=== PATIENT | male | born 1980 | race Caucasian/White ===

== ENCOUNTER 2020-09-03 08:34 | Emergency (ER) | payer OTHER, SELFPAY ==
[2020-09-03 08:39] VITALS: BP 122/72; PULSE 79; RESP 16; TEMP 36.9; O2SAT 98
--- NOTE | 2020-09-03 08:43 | ED.GENADUL_ITS ---
Discharge Plan Disposition Patient Disposition: HOME Condition: Stable Discharge Details Clinical Impression: Lumbar strain, Radiculopathy Primary Care Provider: None,None ED Provider: Rula Nicole Home Meds and New Rx's Prescriptions: New methocarbamol 500 mg tablet 500 mg PO Q6H PRN (Reason: muscle spasm) Qty: 14 RF: 0 Discharge Instructions Instructions: Low Back Strain (ED) Additional Instructions: Alternate ice and heat to the affected area(s) several times daily for 20 minutes at a time. Alternate tylenol and motrin as needed and directed for pain. Take the methocarbamol for pain not relieved with Tylenol or Motrin. You will receive a call from care management regarding a follow-up appoint with the primary care doctor to establish care and for reevaluation. Return immediately to the emergency department if you develop any worsening or new concerning symptoms. Stand Alone Forms: Work Release Discharge Data Discharge Date/Time-TO BE ENTERED AT DEPARTURE: 09/03/20 09:11 Discharge Physician: Rula Nicole Medical Decision Making 40-year-old male presents with mid and left lower back pain with radiation down to his right mid posterior thigh for the past 4 days after increasing lifting and carrying and sleeping in a different position in his bed at night. No cauda equina symptoms. He is hemodynamically stable and appears nontoxic. He has no midline or paraspinal tenderness. No focal deficits. Neurovascular intact. Suspect most likely muscle strain. Also discussed the possibility of pinched nerve or disc herniation as he has right leg radiculopathy. Do not see an indication for imaging at this time as he has no focal deficits the patient is agreeable. He is declining any medication here. He states he feels that he can return to work tonight but is open to returning tomorrow night if his pain persists this evening. He is advised alternate ice and heat, Tylenol Motrin. We will send home with methocarbamol to take as directed. Patient placed on care management list to arrange for follow-up appointment with the primary care doctor. Usual and customary return precautions given prior to discharge. Medical Records Medical records reviewed: Yes I reviewed the patient's medical records. HPI General Mode of arrival: ambulatory . Date/Time Provider Initiated Documentation: 09/03/20 08:35 . Limitations to Documentation: no limitations . Information obtained by: patient . HPI Narrative: Patient is a 40-year-old male who presents with lower mid and left back pain with radiation down his right mid thigh for the past 4 days. Patient states his girlfriend recently had surgery and he has been doing more lifting and carrying at home in addition to lifting his toddler and has been sleeping on a different part of the bed to accommodate his girlfriend. He states the pain is worse with movement and bending. She has been taking ibuprofen and Tylenol with some relief. He has not taken any medication at this morning. He denies any fever, vomiting, abdominal pain, bowel or bladder incontinence, saddle anesthesia, leg weakness or numbness. 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 Patient drove himself to the ER. Related Data Home Medications Medication Instructions Recorded Confirmed methocarbamol 500 mg PO Q6H PRN #14 tab 09/03/20 Previous Rx's Medication Instructions Recorded methocarbamol 500 mg PO Q6H PRN #14 tab 09/03/20 Allergies Allergy/AdvReac Type Severity Reaction Status Date / Time No Known Allergies Allergy Unverified 09/03/20 08:44 Review of Systems All systems reviewed & are unremarkable except as noted in HPI and below Constitutional Constitutional: Reports as per HPI, Denies chills and Denies fever(s) Eyes Eyes: Denies blurry vision ENT Ears, Nose, Mouth, and Throat: Denies dizziness, Denies sore throat and Denies throat swelling Cardiovascular Cardiovascular: Denies chest pain and Denies dyspnea Respiratory Respiratory: Denies cough and Denies dyspnea Gastrointestinal Gastrointestinal: Denies abdominal pain, Denies diarrhea and Denies vomiting Genitourinary Genitourinary: Denies hematuria and Denies dysuria Musculoskeletal Musculoskeletal: Reports back pain and Denies numbness Integumentary/Breasts Skin/Breast: Denies lesions and Denies rash Neurologic Neurologic: Denies dizziness, Denies localized weakness and Denies numbness Allergic/Immunologic Allergic/Immunologic: Denies throat swelling [facility] Medical History (Updated 09/03/20 @ 09:10 by Rula Nicole DO) No significant past medical history Surgical History (Updated 09/03/20 @ 09:10 by Rula Nicole DO) No significant past surgical history Social History Smoking/Tobacco Use Status: Current every day Tobacco Type: cigarettes Smoking risk assessment performed?: Yes Alcohol Intake: never Drug use: Never Substance use type: does not use Do you feel safe at home: Yes Do you feel safe in your relationship?: Yes Exam Const General: cooperative, healthy appearing and no acute distress [facility] Head: normal to inspection Face and sinus: normal facial exam Eyes General: appearance normal, both eyes and all related structures EOM: EOM intact bilaterally Neck Neck: normal visual inspection and No submandibular swelling Lymphatic: no lymphadenopathy noted Chest Chest: normal inspection of the chest and no tenderness Resp Effort & Inspection: normal respiratory effort and able to speak in complete sentences Auscultation: clear to auscultation bilaterally Cardio Rate: regular rate Rhythm: regular rhythm GI Inspection: normal to inspection Palpation: soft, not firm, not rigid and nontender Auscultation: normal bowel sounds Back/Spine/Pelvis Thoracic/Lumbar Spine: thoracic and lumbar spine normal to inspection Pelvis: no pain with anterior-posterior compression Skin General skin exam: no rashes or lesions noted Neuro General: patient alert, patient awake and patient oriented x3 Cognition: normal cognition Speech: speech normal Motor: muscle tone normal throughout and strength 5/5 throughout Sensory Exam: no sensory deficits noted DTR's: Rt Patellar: 1+, Lt Patellar: 1+, Rt Ankle: 1+ and Lt Ankle: 1+ Plantar Reflexes: Equivocal: bilateral (negative babinski b/l ) Extrem General: normal to inspection, full ROM, capillary refill normal, no calf tenderness bilaterally and no edema Other: Bilateral DP/PT pulses intact. Psych Appearance: grossly normal Mental Status: mental status grossly normal Speech and Movement: speech and movement normal Affect: normal affect
== END 2020-09-03 09:11 | disposition home or self-care (01) ==
PROVIDERS: Emergency Provider Physician Assistant
DX: M54.16 Radiculopathy, lumbar region (principal); S39.012A Strain of muscle, fascia and tendon of lower back, initial encounter; X50.0XXA Overexertion from strenuous movement or load, initial encounter
CPT/HCPCS: 99283

== ENCOUNTER 2021-06-25 08:32 | Emergency (ER) | payer OTHER, SELFPAY ==
[2021-06-25 08:49] VITALS: BP 105/63; PULSE 86; RESP 14; TEMP 36.2; O2SAT 100
--- NOTE | 2021-06-25 09:03 | ED.GENADUL_ITS ---
Discharge Plan Disposition Patient Disposition: HOME Condition: Stable Discharge Details Clinical Impression: Abscess, dental Primary Care Provider: None,None ED Provider: Brittni Martinez Home Meds and New Rx's Prescriptions: New amoxicillin-pot clavulanate [Augmentin] 875-125 mg tablet 1 tab PO BID 10 Days Qty: 20 RF: 0 Discharge Instructions Instructions: Dental Abscess (ED) Additional Instructions: Please take the antibiotics as prescribed. Use the ED Hurricaine gel topically up to 3 times daily as needed for pain. Rinse mouth after eating. Practice good oral hygiene. Follow-up with the dentist as soon as possible. Follow up with primary care provider in 3-5 days. Return to ED sooner if any worsening or concerns. Increase oral fluids. Please take Tylenol or Ibuprofen with food every 4-6 hours as needed for pain and swelling. Return or be seen by dentist sooner or return to ED for any increasing swelling, fever, vomiting, trouble breathing. Discharge Data Discharge Date/Time-TO BE ENTERED AT DEPARTURE: 06/25/21 09:21 Medical Decision Making 41-year-old male presents to the ER chief complaint of right upper tooth pain and right facial swelling which began yesterday. He has poor dentition. He denies any drainage. Denies any fever chills, shortness of breath or any other a ssociated symptoms. Speaking in full sentences no trouble swallowing. He does not have a dentist or a PCP. He is a daily smoker. He has been taking ibuprofen with little to no relief. He denies any illicit drug use. We will give patient Hurricaine gel, Augmentin 1 tablet p.o. here now and to go. At this time there is no area of fluctuance or obviously drainable abscess. Will place patient on 10 days of antibiotics and give dental resources and instruct on follow-up. Patient afebrile nontachycardic alert and oriented. No airway involvement. Patient discharged home on antibiotics. This text was generated using [employer] system, please disregard any oddities of phrase or misspellings. HPI General Mode of arrival: ambulatory . Date/Time Provider Initiated Documentation: 06/25/21 08:34 . Limitations to Documentation: no limitations . Information obtained by: patient, RN notes reviewed and old records reviewed . HPI Narrative: 41-year-old male presents to the ER chief complaint of right upper tooth pain and right facial swelling which began yesterday. He has poor dentition. He denies any drainage. Denies any fever chills, shortness of breath or any other associated symptoms. Speaking in full sentences no trouble swallowing. He does not have a dentist or a PCP. He is a daily smoker. He has been taking ibuprofen with little to no relief. He denies any illicit drug use. Related Data Home Medications Medication Instructions Recorded Confirmed amoxicillin-pot clavulanate 1 tab PO BID 10 Days #20 tab 06/25/21 [Augmentin] Previous Rx's Medication Instructions Recorded amoxicillin-pot clavulanate 1 tab PO BID 10 Days #20 tab 06/25/21 [Augmentin] Allergies Allergy/AdvReac Type Severity Reaction Status Date / Time No Known Allergies Allergy Unverified 06/25/21 08:52 General Stated Complaint: DentalOral ANIYA: 4 Review of Systems All systems reviewed & are unremarkable except as noted in HPI and below Constitutional Constitutional: Denies chills, Denies excessive sweating and Denies fever(s) ENT Ears, Nose, Mouth, and Throat: Reports as per HPI, Denies bleeding gums, Reports dental pain, Denies dysphagia, Denies vertigo, Denies dizziness, Reports facial pain (Right side facial swelling), Reports mouth pain, Reports nose pain, Denies sore throat, Denies throat swelling and Denies tongue swelling Gastrointestinal Gastrointestinal: Denies dysphagia Neurologic Neurologic: Denies vertigo and Denies dizziness Endocrine Endocrine: Denies excessive sweating Allergic/Immunologic Allergic/Immunologic: Denies throat swelling and Denies tongue swelling [facility] Medical History (Updated 06/25/21 @ 09:14 by Brittni Martinez) No significant past medical history Surgical History (Updated 09/03/20 @ 09:10 by Rula Nicole DO) No significant past surgical history Social History Smoking/Tobacco Use Status: Current every day Tobacco Type: cigarettes Smoking risk assessment performed?: Yes Alcohol Intake: never Drug use: Never Substance use type: does not use Do you feel safe at home: Yes Do you feel safe in your relationship?: Yes Exam [facility] Head: normal to inspection, no palpable skull fracture and normocephalic Head images: 1. Swelling, tenderness, no erythema, no induration Ears: hearing grossly normal bilaterally Face and sinus: edema Mouth: oropharynx normal, moist mucous membranes, no audible dysphonia and no drooling Teeth and gingiva: abnormal tooth or associated gingiva (Multiple eroded teeth), caries, gingiva abnormal diffusely erythematous and tender (Upper Right frontal ); without any purulent discharge and poor dentition Throat: posterior oropharynx normal, tonsils normal and uvula midline Course Vital Signs Vital signs: Vital Signs Temperature 36.2 C L 06/25/21 08:49 Pulse 86 06/25/21 08:49 Respiratory Rate 14 06/25/21 08:49 Blood Pressure 105/63 06/25/21 08:49 Pulse Oximetry 100 06/25/21 08:49 Temperature 36.2 C L 06/25/21 08:49 Temperature Source Skin 06/25/21 08:49 Pulse 86 06/25/21 08:49 Respiratory Rate 14 06/25/21 08:49 Respiratory Effort Non-Labored 06/25/21 08:54 Blood Pressure 105/63 06/25/21 08:49 Blood Pressure Position Sitting 06/25/21 08:49 Pulse Oximetry 100 06/25/21 08:49 Oxygen Delivery Method Room Air 06/25/21 08:49 Oxygen Flow Rate 0 06/25/21 08:49 Pain Level 5 06/25/21 08:54 Comment 06/25/21 08:49
--- NOTE | 2021-06-25 19:10 | NUR.NOTE ---
referral to [facility] for pcp establish
== END 2021-06-25 09:21 | disposition home or self-care (01) ==
PROVIDERS: Emergency Provider Registered Nurse Emergency
DX: K04.7 Periapical abscess without sinus (principal)
CPT/HCPCS: 99283